=== PATIENT | male | born 1950 | race Caucasian/White ===

== ENCOUNTER 2017-07-29 13:26 | Inpatient (IN) | payer MEDICARE ==
[2017-07-29] MEDS ORDERED: SULFAMETH/TRIMETH 800/160 MG 1 UDTAB TABLET PO ONE ×2 (16:59→17:00)
[2017-07-29] MEDS ORDERED: LISI40TA4 PO (17:10)
[2017-07-29] MEDS ORDERED: TEMA30CA PO (17:10)
[2017-07-29] MEDS ORDERED: GABA-536 PO (17:10)
[2017-07-29] MEDS ORDERED: ACETAMINOPHEN ES 500 MG TABLET PO PRN (17:30)
[2017-07-29] MEDS ORDERED: HYDR-552 PO (17:40)
[2017-07-29] MEDS ORDERED: TAMS0.4C34 PO (17:40)
[2017-07-29] MEDS: GABAPENTIN 400 MG CAPSULE PO SCH (21:43)
[2017-07-29] MEDS: TAMSULOSIN 0.4 MG CAP.SR.24H PO SCH (21:43)
[2017-07-29] MEDS ORDERED: ACETAMINOPHEN 325 MG TABLET PO PRN (22:00)
[2017-07-29] MEDS ORDERED: MAGNESIUM HYDROXIDE 30 ML UDC PO PRN (22:00)
[2017-07-29] MEDS ORDERED: MAG HYDROX/AL HYDROX/SIMETH 30 ML UDC PO PRN (22:00)
[2017-07-29] MEDS ORDERED: TEMAZEPAM 7.5 MG CAPSULE PO PRN (22:00)
[2017-07-29] MEDS ORDERED: clonazePAM 0.5 MG TABLET PO PRN (22:30)
[2017-07-30] MEDS: GABAPENTIN 400 MG CAPSULE PO SCH ×3 (09:15→17:24)
[2017-07-30] MEDS: HYDROCODONE/APAP 5/325MG 1 EACH TABLET PO PRN ×2 (09:19→23:54)
[2017-07-30] MEDS: BENZTROPINE MESYLATE (1 MG) 1 MG TABLET PO SCH (14:56)
[2017-07-30] MEDS: DIVALPROEX SODIUM 250 MG TABLET.DR PO SCH ×2 (15:03→22:03)
[2017-07-30] MEDS: OLANZAPINE 5 MG/TAB.RAPDIS PO SCH (15:03)
[2017-07-30] MEDS: LISINOPRIL (20MG) 20 MG TABLET PO SCH (17:26)
[2017-07-30] MEDS: TAMSULOSIN 0.4 MG CAP.SR.24H PO SCH (22:03)
[2017-07-30] MEDS: TEMAZEPAM 15 MG CAPSULE PO PRN (22:08)
[2017-07-31] MEDS: BENZTROPINE MESYLATE (1 MG) 1 MG TABLET PO SCH ×3 (09:00→16:57)
[2017-07-31] MEDS: GABAPENTIN 400 MG CAPSULE PO SCH ×3 (09:32→16:54)
[2017-07-31] MEDS: DIVALPROEX SODIUM 250 MG TABLET.DR PO SCH ×2 (09:32→21:15)
[2017-07-31] MEDS: LISINOPRIL (20MG) 20 MG TABLET PO SCH (09:34)
[2017-07-31] MEDS: OLANZAPINE 5 MG/TAB.RAPDIS PO SCH ×2 (10:22→16:55)
[2017-07-31] MEDS: HYDROCODONE/APAP 5/325MG 1 EACH TABLET PO PRN ×2 (10:46→17:33)
[2017-07-31] MEDS: TEMAZEPAM 15 MG CAPSULE PO PRN (21:16)
[2017-07-31] MEDS: TAMSULOSIN 0.4 MG CAP.SR.24H PO SCH (21:16)
[2017-08-01] MEDS: HYDROCODONE/APAP 5/325MG 1 EACH TABLET PO PRN ×2 (02:50→18:16)
[2017-08-01] MEDS: GABAPENTIN 400 MG CAPSULE PO SCH ×3 (08:28→16:27)
[2017-08-01] MEDS: DIVALPROEX SODIUM 250 MG TABLET.DR PO SCH ×2 (08:28→21:11)
[2017-08-01] MEDS: BENZTROPINE MESYLATE (1 MG) 1 MG TABLET PO SCH ×2 (08:29→16:27)
[2017-08-01] MEDS: LISINOPRIL (20MG) 20 MG TABLET PO SCH (08:29)
[2017-08-01] MEDS: OLANZAPINE 5 MG/TAB.RAPDIS PO SCH ×2 (08:29→16:27)
[2017-08-01] MEDS ORDERED: PETROLATUM,WHITE PACKET 5 GM PACKET TP PRN (11:00)
[2017-08-01] MEDS: TAMSULOSIN 0.4 MG CAP.SR.24H PO SCH (21:11)
[2017-08-02] MEDS: DIVALPROEX SODIUM 250 MG TABLET.DR PO SCH ×2 (08:38→21:00)
[2017-08-02] MEDS: GABAPENTIN 400 MG CAPSULE PO SCH ×3 (08:38→16:55)
[2017-08-02] MEDS: BENZTROPINE MESYLATE (1 MG) 1 MG TABLET PO SCH ×2 (08:38→09:00)
[2017-08-02] MEDS: OLANZAPINE 5 MG/TAB.RAPDIS PO SCH ×2 (08:38→09:00)
[2017-08-02] MEDS: LISINOPRIL (20MG) 20 MG TABLET PO SCH (08:41)
[2017-08-02] MEDS: HYDROCODONE/APAP 5/325MG 1 EACH TABLET PO PRN ×2 (10:32→16:56)
[2017-08-02] MEDS: TAMSULOSIN 0.4 MG CAP.SR.24H PO SCH (21:31)
[2017-08-03] MEDS: GABAPENTIN 400 MG CAPSULE PO SCH ×3 (09:23→16:34)
[2017-08-03] MEDS: DIVALPROEX SODIUM 250 MG TABLET.DR PO SCH ×2 (09:23→21:35)
[2017-08-03] MEDS: LISINOPRIL (20MG) 20 MG TABLET PO SCH (09:23)
[2017-08-03] MEDS: HYDROCODONE/APAP 5/325MG 1 EACH TABLET PO PRN ×2 (09:23→16:36)
[2017-08-03] MEDS: TAMSULOSIN 0.4 MG CAP.SR.24H PO SCH (21:34)
[2017-08-04] MEDS: HYDROCODONE/APAP 5/325MG 1 EACH TABLET PO PRN ×2 (07:59→20:21)
[2017-08-04] MEDS: GABAPENTIN 400 MG CAPSULE PO SCH ×3 (08:03→17:00)
[2017-08-04] MEDS: DIVALPROEX SODIUM 250 MG TABLET.DR PO SCH ×2 (08:03→21:40)
[2017-08-04] MEDS: LISINOPRIL (20MG) 20 MG TABLET PO SCH (08:05)
[2017-08-04] MEDS: TAMSULOSIN 0.4 MG CAP.SR.24H PO SCH (21:39)
[2017-08-05] MEDS: DIVALPROEX SODIUM 250 MG TABLET.DR PO SCH ×2 (09:04→21:00)
[2017-08-05] MEDS: LISINOPRIL (20MG) 20 MG TABLET PO SCH (09:05)
[2017-08-05] MEDS: GABAPENTIN 400 MG CAPSULE PO SCH ×5 (09:05→21:00)
[2017-08-05] MEDS: HYDROCODONE/APAP 5/325MG 1 EACH TABLET PO PRN ×2 (09:06→17:35)
[2017-08-05] MEDS: TAMSULOSIN 0.4 MG CAP.SR.24H PO SCH (22:00)
[2017-08-06] MEDS: DIVALPROEX SODIUM 250 MG TABLET.DR PO SCH (08:30)
[2017-08-06] MEDS: GABAPENTIN 400 MG CAPSULE PO SCH ×4 (08:30→21:30)
[2017-08-06] MEDS: LISINOPRIL (20MG) 20 MG TABLET PO SCH (08:30)
[2017-08-06] MEDS: HYDROCODONE/APAP 5/325MG 1 EACH TABLET PO PRN ×2 (10:10→16:34)
[2017-08-06] MEDS: DIVALPROEX SODIUM 125 MG CAP.SPRINK PO SCH ×2 (15:33→21:30)
[2017-08-06] MEDS: TAMSULOSIN 0.4 MG CAP.SR.24H PO SCH (21:30)
[2017-08-07] MEDS: HYDROCODONE/APAP 5/325MG 1 EACH TABLET PO PRN ×2 (07:32→16:30)
[2017-08-07] MEDS: LISINOPRIL (20MG) 20 MG TABLET PO SCH (09:00)
[2017-08-07] MEDS: GABAPENTIN 400 MG CAPSULE PO SCH ×4 (09:00→20:42)
[2017-08-07] MEDS: DIVALPROEX SODIUM 125 MG CAP.SPRINK PO SCH ×2 (09:00→20:42)
[2017-08-07] MEDS: TAMSULOSIN 0.4 MG CAP.SR.24H PO SCH (21:01)
[2017-08-08] MEDS: GABAPENTIN 400 MG CAPSULE PO SCH ×4 (08:26→21:23)
[2017-08-08] MEDS: DIVALPROEX SODIUM 125 MG CAP.SPRINK PO SCH ×2 (08:26→21:23)
[2017-08-08] MEDS: LISINOPRIL (20MG) 20 MG TABLET PO SCH (08:27)
[2017-08-08] MEDS: TEMAZEPAM 15 MG CAPSULE PO PRN (10:24)
[2017-08-08] MEDS ORDERED: diphenhydrAMINE HCL ELIX 25 MG/10 ML UDC PO PRN (16:30)
[2017-08-08] MEDS: ZIPRASIDONE 20 MG CAPSULE PO SCH (16:43)
[2017-08-08] MEDS: HYDROCODONE/APAP 5/325MG 1 EACH TABLET PO PRN (16:47)
[2017-08-08] MEDS: TAMSULOSIN 0.4 MG CAP.SR.24H PO SCH (21:23)
[2017-08-09] MEDS: GABAPENTIN 400 MG CAPSULE PO SCH ×2 (08:41→12:44)
[2017-08-09] MEDS: ZIPRASIDONE 20 MG CAPSULE PO SCH (08:41)
[2017-08-09] MEDS: DIVALPROEX SODIUM 125 MG CAP.SPRINK PO SCH (08:41)
[2017-08-09] MEDS: LISINOPRIL (20MG) 20 MG TABLET PO SCH (08:42)
[2017-08-09] MEDS: HYDROCODONE/APAP 5/325MG 1 EACH TABLET PO PRN (08:43)
== END 2017-08-09 13:45 | DRG 885 ==
DX: F25.0 Schizoaffective disorder, bipolar type (principal); E44.1 Mild protein-calorie malnutrition; R45.851 Suicidal ideations; F23 Brief psychotic disorder; I10 Essential (primary) hypertension; D63.8 Anemia in other chronic diseases classified elsewhere; M19.90 Unspecified osteoarthritis, unspecified site; N40.0 Benign prostatic hyperplasia without lower urinary tract symptoms; Z59.0 Homelessness; F29 Unspecified psychosis not due to a substance or known physiological condition